=== PATIENT | male | born 1980 | race African-American/Black ===

== ENCOUNTER 2023-12-25 07:03 | Emergency (ER) | payer SELFPAY ==
[~2023-12-25] VITALS: Ht 170.2 cm; Wt 95.5 kg
[2023-12-25 07:46] LABS: BASO % 0.8 % (0.0-2.0); EOS # 0.2 K/mm3 (0.0-0.7); EOS % 4.4 % (0.0-4.0); GRAN # 2.5 K/mm3 (1.4-6.5); GRAN % 47.4 % (42.2-75.2); HEMATOCRIT 42.7 % (42.0-52.0); HEMOGLOBIN 14.5 g/dl (13.5-18.0); LYMPH % 38.4 % (20.0-51.0); MEAN CELL VOLUME 83 fl (80.0-100.0); MEAN CORPUSCULAR HEMOGLOBIN 28 pg (27-31); MEAN CORPUSCULAR HGB CONC 34 g/dl (33.0-37.0); MEAN PLATELET VOLUME 10.9 fl (7.4-10.4); MONO # 0.5 K/mm3 (0.1-0.6); MONO % 8.6 % (1.7-9.3); PLATELET COUNT 180 K/mm3 (130-400); RED BLOOD COUNT 5.17 M/mm3 (4.20-5.60); REDCELL DISTRIBUTION WIDTH-CV 14.4 % (11.5-14.5)
[2023-12-25] MEDS ORDERED: Iohexol 300 - 100 ML VIAL IV ONE (08:03)
[2023-12-25] MEDS ORDERED: NS 100 ML IV SCH (08:03)
[2023-12-25 08:05] LABS: ALBUMIN 3.6 g/dL (3.5-5.0); BILIRUBIN,TOTAL 0.3 mg/dL (0.2-1.2); CALCIUM 8.7 mg/dL (8.4-10.2); CREATININE, serum 1.11 mg/dL (0.72-1.25); POTASSIUM 3.8 mEq/L (3.5-4.5); TOTAL PROTEIN 6.5 g/dl (6.2-8.1)
[2023-12-25] MEDS ORDERED: Clopidogrel 300 MG DOSE (75 mg x 4 tabs) PO ONE (08:15)
[2023-12-25] MEDS ORDERED: Tenecteplase 50 MG/10 ML VIAL (after reconstitution) IV ONE (08:15)
[2023-12-25 08:26] LABS: THYROID STIMULATING HORMONE 1.121 uIU/mL (0.350-4.940); TROPONIN-I 0.013 ng/mL (0.00-0.033)
[2023-12-25] MEDS ORDERED: Heparin/D5W 250 ML IV SCH (08:30)
[2023-12-25] MEDS ORDERED: Morphine 4 MG/ML VIAL IV ONE (08:30)
[2023-12-25] MEDS ORDERED: Heparin 5,000 UNITS/ML 1 ML VIAL IV ONE (08:30)
[2023-12-25] MEDS ORDERED: Heparin 5,000 UNITS/ML 1 ML VIAL IV PRN (08:30)
[2023-12-25 08:46] VITALS: BP 154/103; PULSE 61; TEMP 98
== END 2023-12-25 08:48 | disposition short-term general hospital (02) ==
LOC: COL.ER 07:03
PROVIDERS: Family Medicine
DX: I21.3 ST elevation (STEMI) myocardial infarction of unspecified site (principal); I10 Essential (primary) hypertension; F17.200 Nicotine dependence, unspecified, uncomplicated; Z79.82 Long term (current) use of aspirin; Z79.899 Other long term (current) drug therapy
CPT/HCPCS: J1644; J2270; J3101; Q9967

== ENCOUNTER 2023-12-28 06:31 | Emergency (ER) | payer SELFPAY ==
[~2023-12-28] VITALS: Ht 170.2 cm; Wt 93.2 kg
[2023-12-28 06:38] VITALS: TEMP 98
[2023-12-28] MEDS ORDERED: Morphine 4 MG/ML VIAL IV ONE (07:15)
[2023-12-28] MEDS ORDERED: LORazepam 2 MG/ML 1 ML VIAL IV ONE (07:15)
[2023-12-28 07:55] LABS: BILIRUBIN,TOTAL 0.3 mg/dL (0.2-1.2); CALCIUM 9.7 mg/dL (8.4-10.2); CREATININE, serum 1.2 mg/dL (0.72-1.25); POTASSIUM 4.8 mEq/L (3.5-4.5); TOTAL PROTEIN 7.8 g/dl (6.2-8.1)
[2023-12-28] MEDS ORDERED: NS 100 ML IV SCH (08:21)
[2023-12-28] MEDS ORDERED: Iohexol 300 - 100 ML VIAL IV ONE (08:21)
[2023-12-28 08:31] LABS: COLLECTION METHOD CLEAN CATCH
[2023-12-28 08:32] LABS: BASO # 0.1 K/mm3 (0.0-0.2); EOS # 0.2 K/mm3 (0.0-0.7); EOS % 4.2 % (0.0-4.0); GRAN # 2.1 K/mm3 (1.4-6.5); GRAN % 44.2 % (42.2-75.2); HEMATOCRIT 43.9 % (42.0-52.0); HEMOGLOBIN 14.9 g/dl (13.5-18.0); LYMPH # 1.8 K/mm3 (1.2-3.4); MEAN CELL VOLUME 83 fl (80.0-100.0); MEAN CORPUSCULAR HEMOGLOBIN 28 pg (27-31); MEAN CORPUSCULAR HGB CONC 34 g/dl (33.0-37.0); MEAN PLATELET VOLUME 10.4 fl (7.4-10.4); MONO # 0.6 K/mm3 (0.1-0.6); MONO % 13.4 % (1.7-9.3); PLATELET COUNT 165 K/mm3 (130-400); RED BLOOD COUNT 5.28 M/mm3 (4.20-5.60); REDCELL DISTRIBUTION WIDTH-CV 14.6 % (11.5-14.5)
[2023-12-28 08:44] LABS: URINE APPEARANCE CLEAR (CLEAR/HAZY); URINE BLOOD NEGATIVE (NEGATIVE); URINE COLOR YELLOW (YELLOW); URINE GLUCOSE NEGATIVE (NEGATIVE); URINE KETONE NEGATIVE (NEGATIVE); URINE NITRATE NEGATIVE (NEGATIVE); URINE PROTEIN(semi-quant) NEGATIVE (NEGATIVE); URINE UROBILINOGEN 0.2 E.U/dL (0.2-1.0)
[2023-12-28] MEDS ORDERED: FLEXERIL 1010 MG/TAB PO (09:07)
[2023-12-28] MEDS ORDERED: NORCO 325 MG-51 TAB PO (09:07)
[2023-12-28 09:10] VITALS: BP 146/99; PULSE 62
== END 2023-12-28 09:21 | disposition home or self-care (01) ==
LOC: COL.ER 06:31
PROVIDERS: Emergency Medicine
DX: M54.50 Low back pain, unspecified (principal)
CPT/HCPCS: J2060; J2270; Q9967